=== PATIENT | male | born 2000 | race Caucasian/White ===

== ENCOUNTER 2023-04-12 19:36 | Emergency (ER) | payer SELFPAY ==
[2023-04-12 19:45] VITALS: BP 121/70; PULSE 76; RESP 18; TEMP 98.2; BMI 19.0
[2023-04-12] MEDS ORDERED: SODIUM CHLORIDE 1,000 ML IV STA (20:42)
[2023-04-12] MEDS ORDERED: ONDANSETRON 4 MG/2 ML VIAL ONE (20:45)
[2023-04-12] MEDS ORDERED: ONDANSETRON 4 MG/2 ML VIAL IVPUSH ONE (20:45)
[2023-04-12 20:56] LABS: INR 1.32 (0.83-1.09); PROTHROMBIN TIME (PATIENT) 15.3 SEC (9.7-13.0)
[2023-04-12 20:59] LABS: ACTIVATED PTT 27.7 SECONDS (25.2-36.5)
[2023-04-12 21:13] LABS: POTASSIUM 3.8 mmol/L (3.5-5.1)
[2023-04-12 21:16] LABS: ALBUMIN 4.5 g/dl (3.4-5.0); BLOOD UREA NITROGEN 14.3 mg/dL (7-18)
[2023-04-12 21:20] LABS: BASO % 0.6 % (0-2.0); EOS % 1.1 % (0-4.5); HEMATOCRIT 47.2 % (35.4-49); HEMOGLOBIN 16.6 GM/dL (11.7-16.9); LYMPH % 14.5 % (8-40); MCHC 35.1 g/dl (32.0-35.9); MEAN CELL VOLUME 88.4 fl (80-96); MEAN PLT VOLUME 7.6 fl (7.5-11.1); MONO % 4.9 % (3.8-10.2); NEUT % 78.9 % (42.8-82.8); PLATELET COUNT 361 10^3/uL (134-434); RBC 5.34 M/mm3 (4.00-5.60); RDW 12.5 % (11.9-15.9)
[2023-04-12 21:21] LABS: BILIRUBIN,TOTAL 0.8 mg/dL (0.2-1); TOT PROT 8.1 g/dl (6.4-8.2)
[2023-04-12 21:34] LABS: CALCIUM 9.4 mg/dL (8.5-10.1)
[2023-04-12] MEDS ORDERED: MECLIZINE HCL 25 MG TABLET (FP) PO ONE (22:25)
[2023-04-12] MEDS ORDERED: MECLIZINE HCL 25 MG TABLET (FP) ONE (22:37)
== END 2023-04-12 23:55 | disposition home or self-care (01) ==
LOC: JER 19:36
PROC: 3E033GC Introduction of Other Therapeutic Substance into Peripheral Vein, Percutaneous Approach (ICD-10-PCS; principal; 2023-04-12)
PROC: 3E0337Z Introduction of Electrolytic and Water Balance Substance into Peripheral Vein, Percutaneous Approach (ICD-10-PCS; 2023-04-12)
DX: R42 Dizziness and giddiness (principal); R11.2 Nausea with vomiting, unspecified; Z20.822 Contact with and (suspected) exposure to COVID-19
CPT/HCPCS: 0241U-QW; 36415; 71046-TC-FY; 80053; 84439; 84443; 84484; 85025; 85610; 85730; 93005; 93010; 99285-25